=== PATIENT | male | born 1960 | race Caucasian/White ===

== ENCOUNTER 2021-03-16 13:42 | Outpatient (CLI) | payer OTHER, SELFPAY ==
[2021-03-16 14:23] LABS: Alanine Aminotransferase 21 U/L (4-50); Albumin Level 4.5 g/dL (3.5-5.1); Alkaline Phosphatase 86 U/L (38-126); Anion Gap 7 mmol/L (8-16); Aspartate Amino Transferase 26 U/L (17-59); Bilirubin,Total 0.4 mg/dL (0.2-1.3); Blood Urea Nitrogen 36 mg/dL (9-20); Calcium 9.6 mg/dL (8.4-10.2); Carbon Dioxide 26 mmol/L (22-30); Chloride 108 mmol/L (98-107); Cholesterol 215 mg/dL (0-200); Estimated Glomerular Filt Rate 52; Glucose 121 mg/dL (65-110); HDL Direct 43 mg/dL; Potassium 5.3 mmol/L (3.4-5.0); Sodium 141 mmol/L (137-145); Triglycerides 179 mg/dL (<150)
[2021-03-16 14:33] LABS: LDL Cholesterol Direct 120 mg/dL
[2021-03-16 14:52] LABS: Prostate Specific Antigen 1.9 ng/mL (< OR = 4.0)
== END 2021-03-16 13:43 | disposition home or self-care (01) ==
PROVIDERS: PCP Nurse Practitioner; Visit Provider Nurse Practitioner
DX: I10 Essential (primary) hypertension (principal); Z79.899 Other long term (current) drug therapy; E78.5 Hyperlipidemia, unspecified; Z12.5 Encounter for screening for malignant neoplasm of prostate
CPT/HCPCS: 36415; 80053; 80061; 84153

== ENCOUNTER 2022-03-27 11:36 | Outpatient (CLI) | payer OTHER, SELFPAY ==
--- NOTE | 2022-03-27 | ECG_ITS ---
Measurements Intervals [place] Rate: 96 P: 29 WA: 144 QRS: -36 QRSD: 107 T: 30 QT: 382 QTc: 485 Interpretive Statements SINUS RHYTHM MARKED LEFT AXIS DEVIATION [QRS AXIS < -30] COMPARED TO ECG 09/20/2018 10:08:14 NO SIGNIFICANT CHANGES Electronically Signed On 03-27-2022 17:08:34 CDT by Rufino Benitez M.D.
[2022-03-27 12:04] LABS: Hematocrit 41.3 % (42.0-52.0); Hemoglobin 13.5 g/dL (14.0-18.0)
[2022-03-27 12:18] LABS: Albumin Level 4.5 g/dL (3.5-5.1); Anion Gap 14 mmol/L (8-16); Blood Urea Nitrogen 14 mg/dL (9-20); Calcium 9.8 mg/dL (8.4-10.2); Carbon Dioxide 25 mmol/L (22-30); Chloride 102 mmol/L (98-107); Estimated Glomerular Filt Rate > 60; Glucose 128 mg/dL (65-110); Phosphorus 2.3 mg/dL (2.5-4.5); Sodium 141 mmol/L (137-145)
[2022-03-27 12:31] LABS: Urine Cotinine POSITIVE
[2022-03-27 14:01] LABS: Hemoglobin A1C 5.8 % (<5.7)
== END 2022-03-27 11:37 | disposition home or self-care (01) ==
PROVIDERS: PCP Internal Medicine; Visit Provider Orthopaedic Surgery
DX: M16.11 Unilateral primary osteoarthritis, right hip (principal); E78.5 Hyperlipidemia, unspecified; R73.9 Hyperglycemia, unspecified; Z87.891 Personal history of nicotine dependence; I12.9 Hypertensive chronic kidney disease with stage 1 through stage 4 chronic kidney disease, or unspecified chronic kidney disease; N18.30 Chronic kidney disease, stage 3 unspecified
CPT/HCPCS: 80069; 80307; 82565; 83036; 85014; 85018; 93005

== ENCOUNTER 2024-04-07 15:02 | Outpatient (CLI) | payer OTHER, SELFPAY ==
--- NOTE | ~2024-04-07 | XR_ITS ---
XR hand LT min 3V Ordering provider: Urbano Paez MD History: . M79.642 - Pain in left hand . Comparison: None. FINDINGS: BONES: No acute fracture or dislocation. JOINT SPACES: Narrowing of the interphalangeal joint of the thumb. Narrowing of the proximal and dist al interphalangeal joints suggestive of osteoarthritic changes. SOFT TISSUES: Unremarkable. IMPRESSION: No acute osseous abnormality left hand. Reviewed, dictated and finalized at location A.
--- NOTE | ~2024-04-07 | XR_ITS ---
EXAM: XR finger 1st LT min 2V DATE: 04/07/2024 15:27 HISTORY: M79.642 - Pain in left hand . COMPARISON: 04/07/2024. FINDINGS: Normal mineralization. No fracture or dislocation. No lytic or blastic lesion. Moderate de generative narrowing at the thumb interphalangeal and first CMC joints. Mild degenerative narrowing a t the first MCP joint. No erosion or periosteal change. Soft tissues within normal limits. 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 Reviewed, dictated and finalized at location K.
--- NOTE | ~2024-04-07 | XR_ITS ---
EXAM: XR knee LT 3V DATE: 04/07/2024 15:27 HISTORY: M25.569 - Pain in unspecified knee . COMPARISON: 03/04/2015. FINDINGS: Decreased mineralization. No fracture or dislocation. No lytic or blastic lesion. Severe m edial joint space narrowing. Moderate tricompartmental osteophytosis. Large volume joint fluid. No er osion or periosteal change. Minimal vascular calcifications. IMPRESSION: Osteopenia. Tricompartmental left knee osteoarthritis, severe in the medial compartment. Large left knee joint effusion. Reviewed, dictated and finalized at location K. IMPRESSION: Osteopenia. Tricompartmental left knee osteoarthritis, severe in th e medial compartment. Large left knee joint effusion.
== END 2024-04-07 15:03 | disposition home or self-care (01) ==
PROVIDERS: PCP Family Medicine; Visit Provider Family Medicine
DX: M19.042 Primary osteoarthritis, left hand (principal); M17.12 Unilateral primary osteoarthritis, left knee
CPT/HCPCS: 73130; 73140; 73562

== ENCOUNTER 2024-09-17 16:27 | Outpatient (CLI) | payer OTHER, SELFPAY ==
--- NOTE | ~2024-09-17 | US_ITS ---
EXAMINATION: US venous doppler [facility] DATE: 09/17/2024 17:11 INDICATION: Lower limb swelling. Localized lower limb edema. TECHNIQUE: Grayscale ultrasound images without and with compression and Doppler ultrasound images of the bilateral lower extremity veins were obtained. COMPARISON: Ultrasound 11/14/18 FINDINGS: The visualized portions of right common femoral vein, profunda (deep) femoral vein, femoral vein, pop liteal vein, peroneal veins, posterior tibial veins, and greater saphenous vein outflow are patent. The visualized portions of left common femoral vein, profunda femoral vein, femoral vein, popliteal v ein, peroneal veins, posterior tibial veins, and greater saphenous vein outflow are patent. IMPRESSION: 1. No deep venous thrombosis. Reviewed, dictated and finalized at location A. L NURSE CONSULTANT
--- OUTSIDE RECORDS SUMMARY | 2024-09-17 16:30 | XMS_ITS | Clinical Summary ---
Author Organization [facility] Address [address] [place] [address] Phone Care Team Providers Care Teacher Kindergarten Name Role Phone Zana Sandoval DO Primary Care Provider [phone] Allergies No known active allergies Medications Medication Sig Dispensed Refills Start Date End Date Status amLODIPine (NORVASC) 5 MG tablet Take 5 mg by mouth 1 (one) time each day 11/18/2021 Active traMADol (ULTRAM) 50 MG tablet Take 50 mg by mouth 3 (three) times a day if needed for pain 11/18/2021 Active valsartan (DIOVAN) 320 MG tablet TAKE 1 TABLET BY MOUTH ONCE DAILY (STOP TAKING VALSARTAN/HCTZ) 11/18/2021 Active HYDROcodone-acetaminop hen (NORCO) 5-325 MG per tablet Take 1-2 tablets by mouth every 6 (six) hours if needed for pain 03/28/2022 Active Active Problems Problem Noted Date Diagnosed Date Hypertension 01/02/2022 Hyperlipidemia 01/02/2022 Chronic kidney disease 01/02/2022 Immunizations Name Administration Dates Next Due Sars-cov-2, Unspecified 11/07/2020 Family History Medical History Relation Comments Kidney disease Neg Hx Nephrolithiasis Neg Hx Social History Tobacco Use Types Packs/Day Years Used Date Smoking Tobacco: Former Cigarettes 1 30 0 07/30/1980 - 07/30/2010 Smokeless Tobacco: Never Alcohol Use Standard Drinks/Week Comments Yes 3 (1 standard drink = 0.6 oz pur e alcohol) Sex and Gender Information Value Date Recorded Sex Assigned at Not on file Gender Identity Not on file Sexual Orientation Not on file Last Filed Vital Signs Vital Sign Reading Time Taken Comments Blood Pressure 136/78 04/12/2022 2:23 PM CDT Pulse - - Temperature 37.1 C (98.7 F) 04/12/2022 2:23 PM CDT Respiratory Rate 18 04/12/2022 2:23 PM CDT Oxygen Saturation - - Inhaled Oxygen Concentration - - Weight 110 kg (242 lb) 04/12/2022 2:23 PM CDT Height 188 cm (6' 2 ) 04/12/2022 2:23 PM CDT Body Mass Index 31.07 04/12/2022 2:23 PM CDT Plan of Treatment Health Maintenance Due Date Last Done Comments Influenza Vaccine (#1) 2024 Care Teams Teacher Kindergarten Relationship Specialty Start Date End Date Zana Sandoval DO [address] [place] [address] PCP - General Internal Medicine 11/08/21
== END 2024-09-17 16:28 | disposition home or self-care (01) ==
PROVIDERS: PCP Family Medicine; Visit Provider Orthopaedic Surgery
DX: R60.0 Localized edema (principal)
CPT/HCPCS: 93970

== ENCOUNTER 2025-01-23 00:18 | Outpatient (CLI) | payer OTHER, SELFPAY ==
--- NOTE | 2025-01-23 15:11 | ECG_ITS ---
Test Date: 2025-01-23 15:24:52 Measurements Intervals [place] Rate: 97 P: 63 MD: 158 QRS: -11 QRSD: 108 T: 53 QT: 362 QTc: 461 Interpretive Statements SINUS RHYTHM DELAYED PRECORDIAL R/S TRANSITION BORDERLINE ECG No previous ECG available for comparison Electronically Signed On 01-23-2025 15:38:45 CDT by Deandre Swan D.O.
[2025-01-23 15:35] LABS: Basophils Absolute Auto 0.1 K/mm3 (0.0-0.1); Basophils Percent Auto 0.7 % (0.2-1.2); Eosinophils Absolute Auto 0.2 K/mm3 (0-0.3); Eosinophils Percent Auto 3.1 % (0-4.4); Hematocrit 38.6 % (42.0-52.0); Hemoglobin 12.4 g/dL (14.0-18.0); Immature Granulocyte Absolute 0.02 K/mm3 (0.00-0.031); Immature Granulocyte Percent A 0.3 % (0-0.5); Lymphocytes Absolute Auto 1.17 K/mm3 (0.9-3.2); Lymphocytes Percent Auto 16.3 % (18.3-44.2); Mean Corpuscular HGB Conc 32.1 g/dl (32-36); Mean Corpuscular Hemoglobin 30.3 pg (26-34); Mean Corpuscular Volume 94.4 fl (80-100); Mean Platelet Volume 8.8 fl (7.4-10.4); Monocytes Absolute Auto 0.7 K/mm3 (0.1-0.6); Monocytes Percent Auto 9.3 % (2.6-8.5); Neutrophils Absolute Auto 5.1 K/mm3 (1.3-6.7); Neutrophils Percent Auto 70.3 % (45.5-73.1); Platelet Count Result 361 k/mm3 (150-375); Red Blood Count 4.09 M/mm3 (4.6-6.20); Red Cell Distribution Width 13.5 % (11.5-14.5); White Blood Count 7.2 K/mm3 (4.5-10.0)
[2025-01-23 15:49] LABS: Hemoglobin A1C. 5.8 % (<5.7)
[2025-01-23 15:58] LABS: INR 0.9; Prothrombin Time 12.6 Seconds (11.1-14.7)
[2025-01-23 15:59] LABS: Partial Thromboplastin Time 28.6 Seconds (22.3-36.8)
[2025-01-23 16:10] LABS: Urine Cotinine NEGATIVE
[2025-01-23 16:22] LABS: Albumin Level 4.5 g/dL (3.5-5.1); Anion Gap 8 mmol/L (4-12); Blood Urea Nitrogen 27 mg/dL (9-20); Calcium 9.7 mg/dL (8.4-10.2); Carbon Dioxide 28 mmol/L (22-30); Chloride 104 mmol/L (98-107); Estimated Glomerular Filt Rate 58; Glucose 119 mg/dL (65-110); Potassium 4.7 mmol/L (3.4-5.0); Sodium 140 mmol/L (137-145)
== END 2025-01-23 00:19 | disposition home or self-care (01) ==
PROVIDERS: Anesthesiology; PCP Family Medicine; Visit Provider Orthopaedic Surgery
DX: M16.11 Unilateral primary osteoarthritis, right hip (principal); N18.31 Chronic kidney disease, stage 3a; Z01.818 Encounter for other preprocedural examination
CPT/HCPCS: 36415; 80048; 80307; 82040; 83036; 85025; 85610; 85730; 87081; 93005

== ENCOUNTER 2025-02-16 01:17 | Day surgery (SDC) | payer OTHER, SELFPAY ==
[2025-01-23 10:48] VITALS: BP 211/107; PULSE 101; RESP 16; TEMP 37.1; O2SAT 98
[2025-01-23 14:25] VITALS: BP 201/105; PULSE 107; RESP 16; O2SAT 99; BMI 28.0
--- NOTE | 2025-01-23 15:02 | PC.NURSE ---
Addendum entered by Katherine Mcgovern RN 01/23/25 15:08: KEIRA PREP/SCRUB as instructed DENIZ Original Note: *Pt reports no symptoms of his HTN today and Tachycardia, will proceed with his testing and have recommended pt to go to ER for further evaluation as his BP and HR are both elevated. Pt understands the risks. Report to the Outpatient Waiting Room, entrance under the green pavilion located off [address], at time _06:00am on date ___02/16/25____. Planned Procedure Time: 07:30am .? Time changes happen often and if your time is changed the preop area will call you the afternoon before. - You and your visitor will be asked to self-screen and do not enter if you have any COVID symptoms. Please call surgeon if you need to reschedule. - A mask is optional within the hospital at this time. Patients may have clear liquids (water, carbonated beverages, clear teas, apple juice) until 3 hours prior to surgery with a maximum of 20 ounces. - No food from midnight until time of surgery and no smoking, or chewing tobacco (or any form of nicotine). No chewing gum, candy or mints. (0430am) Take only the following medications with a SIP of water on the morning of surgery: _None DO NOT STOP ANY OF YOUR OTHER PRESCRIPTION MEDICATIONS PRIOR TO SURGERY EXCEPT THE FOLLOWING Hold all vitamins and supplements for 3 days per anesthesiologist. Date to take last dose 02/12/25 Medications to discontinue per physician __NSAIDS, Motrin, Advil, Aleve for [address] Lo Date to take last dose 02/07/25 Please no make-up, nail kuwaiti, hairspray, perfume, deodorant, or body powder the day of surgery.? No jewelry (including any body piercings) or valuables the day of surgery, leave them at home.? Please take a shower or bath the night before, or the morning of, surgery with an antibacterial soap.? Wear comfortable, loose fitting clothing.? - Jewelry must be removed prior to entering the operating room.? Rings and piercings that are not removed may be cut off. - The hospital will not accept responsibility for valuables.? - Please leave all valuables, including medications, at home the day of surgery. If you are going home after surgery, a licensed sprinkling truck driver must drive you home.? - NO public transportation without another adult if you receive anesthesia. - We recommend that an adult stay with you for 24 hours following discharge. - We also recommend that you do not drive, make important decision, drink alcoholic beverages, or take any drugs that were not prescribed by your health care provider for at least 24 hours after your discharge time. Follow any additional instructions given to you from your surgeon. Telephone instructions given to __Patient and asked if any additional questions and then verbalized understanding. Patient advised to call surgeon office or pre surgery nurse liaison [phone] if any additional questions.
--- NOTE | 2025-02-11 11:57 | PM.IMHP ---
H&P: HPI History of Present Illness Date/Time: 02/11/25 11:57 Chief Complaint: DJD right hip Narrative: 64-year-old male presents today for a right anterior total hip arthroplasty. Patient has moderately severe osteoarthritis in the right hip. He is having continued symptoms on a regular basis. Patient has chronic kidney disease and not able to take anti-inflammatories. At this point his symptoms are significant on a daily basis. He has been using a cane regularly. Due to the pain and limitations of his activities patient would like to proceed with total hip arthroplasty at this point. Review of Systems Review of Systems: All systems reviewed & are unremarkable except as noted in HPI and below PMFSH Past Medical History Medical History Osteoarthritis Former smoker Stage III chronic kidney disease Benign essential hypertension Other and unspecified hyperlipidemia Surgical History Surgical History Presence of right artificial knee joint Social History Social History Smoking packs per day: 1 Smoking cigarettes per day: 20.0 Years smoked: 30 Smoking pack-years: 30.00 Smoking status: Former smoker Tobacco type: cigarettes and e-cigarettes/vaping Second hand tobacco smoke exposure: No Smoking end date: 07/30/13 Additional smoking assessment comments: quit vaping nicotine few weeks ago Alcohol intake: current Drinks per week: 1 Alcohol use details: social Substance use: current Do You Feel Safe in your Home?: Yes Lack of Transportation: No Lack of Food: Never True Current Housing: I Have Housing Concerned About Future Housing: No Difficulty Paying Gas/Electric Bills: No Difficulty Paying for Meds: No Currently Unemployed: No Education: Associate Degree Difficulty w/ Childcare or Family Care: No Living arrangements: with family Additional living arrangements comments: Gender identity (if verbalized by the patient): Male Sexual Orientation (if Verbalized by the Patient): Straight or Heterosexual Spiritual care concerns: No Meds Home Medications and Allergies Home Medications ?Medication ?Instructions ?Recorded ?Confirmed ?Type valsartan 320 mg tablet 320 mg PO DAILY #90 tabs 12/26/24 02/11/25 Rx chlorthalidone 25 mg tablet 25 mg PO DAILY 01/23/25 02/11/25 History multivit,Ca,min-iron 8 mg-folic 1 tablet PO DAILY 01/23/25 02/11/25 History acid 200 mcg-lycopene 600 mcg tablet (Men's Daily Multivitamin) tramadol 50 mg tablet 50 mg PO Q8H PRN pain #40 tabs 01/28/25 02/11/25 Rx Allergies Allergy/AdvReac Type Severity Reaction Status Date / Time amlodipine AdvReac Intermediate swellilng Verified 02/11/25 11:15 Exam Narrative: 64-year-old male he is 5 ft 11 and 204 lb BMI is 28.4. Skin around the hip and groin crease are normal. 2+ dorsalis pedis and posterior tibial artery pulse palpable. His right hip flexes to 120 which causes him lateral hip pain, internal rotation to 15 causes lateral hip pain external rotation of 30 which causes him lateral hip pain. Stinchfield maneuver reproduces the same lateral hip pain. There is no tenderness over the greater trochanter. No edema in either lower extremity. He has normal sensation both lower extremities. Resp: Auscultation: clear to auscultation bilaterally Cardio: Rate: regular rate Rhythm: regular rhythm Assessment and Plan Assessment and plan (1) Primary localized osteoarthritis of right hip: Code(s): M16.11 - Unilateral primary osteoarthritis, right hip Status: Acute Assessment and Plan: 64-year-old male who has moderately severe osteoarthritis the right hip. He has continued daily symptoms that her rather severe. At this point he feels he would rather proceed with total hip arthroplasty rather than continue nonsurgical treatment. Surgical procedures well as the risks and complications were discussed in detail all questions were answered we will proceed. Patient has seen cardiology and has been cleared without any additional testing. He has seen his orthotic technician at is felt to be stable and has been cleared as well. Patient will see his primary care doctor for pre-surgical clearance as well. Nasal swab was negative. Hemoglobin 12.4 platelets 361. Panel shows his creatinine at 1.26 hours 58.
--- OUTSIDE RECORDS SUMMARY | 2025-02-16 01:20 | XMS_ITS | Continuity of Care Document ---
Author Organization [facility] Address [address] [place] [address] Phone Care Team Providers Care Seafood Fisherman Name Role Phone Tonjanoni BAY Telly Unavailable Unavailable Allergies, Adverse Reactions, Alerts Substance Reaction Status Criticality codeine (unknown) Active No Information Medications Medication Instructions Dosage Effective Dates (start - stop) Status Comments celecoxib 200 mg capsule take 1 capsule by oral route 2 times every day as needed 200 MG - Active Axiron 30 mg/actuation (1.5 mL) transderm solution in metered pump apply 3 pump by topical route every day in the morning to each underarm for a total dose of 60 mg 90 MG - Active Nexium 40 mg capsule,delayed release take 1 capsule by oral route every day 40 MG - Active CELECOXIB (unknown strength) Not Available - No Longer Active AXIRON (unknown strength) Not Available - No Longer Active NEXIUM (unknown strength) Not Available - No Longer Active Procedures Procedure Date EYE EXAM ESTABLISHED PATIENT, MEDICAL De REFRACTION OPTIONAL UPDATE EYE EXAM ESTABLISHED PATIENT, MEDICAL Oc t REFRACTION OPTIONAL UPDATE [facility] frames purchases Trifocal Lens Trivex Standard Photochromatic Tint Lens 1.53-1.59 Progressive lens per lens Trifocal Lens Photochromatic Tint GLASSES RECHECK [facility] frames purchases Trifocal Lens Lens 1.53-1.59 Progressive lens per lens Photochromatic Tint EYE EXAM, EXISTING PATIENT VISION REFRACTION NO CHARGE EYE EXAM, NEW PATIENT MEDICAL REFRACTION UPDATE Advance Directives Directive Yes / No Effective Date File Name No Information Encounters Encounter Description Practice Location Reason(s) For Visit Diagnoses Date Provider Providers Copied on Encounter [facility], [address] [place] [address], [id number] , [place] tel:[phone] [facility] decreased vision (chief complaint) Unspecified blepharitis left lower eyelidUnspecified blepharitis right lower eyelidPresbyopiaAge -related nuclear cataract, bilateral Jun- 7 Magaly Varner. [address] [place] [address], [id number], [place]. tel:[phone] [facility], [address] [place] [address], [id number] , [place] tel:[phone] [facility] no problems with vision and no complaints (chief complaint) Blepharitis of lt lower eyelidBlepharitis of right lower eyelid Apr- 6 Rikypearl Schuler. [address] [place] [address], [id number], [place]. tel:[phone] [facility], [address] [place] [address], [id number] , [place] tel:[phone] [facility] No Information 6 Santi Schuler. [address] [place] [address], [id number], [place]. tel:[phone] [facility], [address] [place] [address], [id number] , [place] tel:[phone] [facility] No Information 5 Santi Schuler. [address] [place] [address], [id number], [place]. tel:[phone] [facility], [address] [place] [address], [id number] , tel:[phone] [facility] No Information Santi Schuler. [address] [place] [address], [id number], [place]. tel:[phone] [facility], [address] [place] [address], [id number] , tel:[phone] [facility] No Information Santi Schuler. [address] [place] [address], [id number], [place]. tel:[phone] [facility], [address] [place] [address], [id number] , tel:[phone] [facility] Blepharitis, unspecifiedTear film insufficiency, unspecified Santi Schuler. [address] [place] [address], [id number], [place]. tel:[phone] [facility], [address] [place] [address], [id number] , tel:[phone] [facility] blurry vision (chief complaint) Blepharitis, unspecifiedExophori aTear film insufficiency, unspecified Santi Schuler. [address] [place] [address], [id number], [place]. tel:[phone] Family History Family Member Type Diagnosis Age At Onset Problem (finding) No family history of Ca taracts Mother Problem (finding) Alive and well Problem (finding) Family history of Retin al disease Problem (finding) No family history of Gl aucoma Problem (finding) No family hist ory of Macular degeneration Payers Payer name Insurance type Covered green party ID Authoriza tion(s) [facility] [id number] Social History Type Description Quantity Date Captured Comments Alcohol Use Details Unknown Caffeine Use Details Unknown Tobacco Use Status Never smoked tobacco 2016 Smoking Status Never smoker Non-Smoking Tobacco Use Details : No Details Available : No Details Available Sex Male Chief Complaint And Reason For Visit From encounter dated '07/03/2017 08:45'. decreased vision (chief complaint). Description: The 57 Year old male presents for yearly dilated exam. Pt reports decreased vision in the right and left eye. The onset was gradual with distance vision and NVA is good with readers vs his safety glasses. The patient denies pain or discomfort currently however he battles blepharitis at times. Pt uses baby shampoo washes PRN. Reason For Referral Reason For Referral No Information History Of Present Illness Encounter Date Complaint History Of Prese nt Illness decreased vision The 57 Year old male presents for yearly dilated exam. Pt reports decreased vision in the right and left eye. The onset was gradual with distance vision and NVA is good with readers vs his safety glasses. The patient denies pain or discomfort currently however he battles blepharitis at times. Pt uses baby shampoo washes PRN. no problems with vis ion and no complaints The 56 Year old male presents for evaluation of no problems with vision and no complaints in the right eye and left eye. Vision good, stable and constant D & N c gls.. Hx of Blepharitis OU. The patient denies pain or discomfort. Using baby shampoo for eye wash. No eye meds. blurry vision The 54 Year old male presents for evaluation of blurry vision in the right eye and left eye. It affects distance vision. It occurs occasionally. Pt has glare at night when VA is blurry. OU feel comfortable. Pt currently being treated for blephartitis and has been using DCN over 2 years. Pt using Azasite OU qday and Refresh OU 2-4x day. Functional Status Date Functional Assessmen t No Information Instructions Date Instruction Additional Infor kj Impression/Plan - 1. Trace bilateral blepharitis. Lids look clean and clear. Dryness can also cause blurry vision. Continue lid scrubs 3x week and use artificial tears OU 3-4x day. 2. Spec RX available. Optional update. 3. OU look healthy. No ARMD or OAG. 4. Early cataracts OU. Will monitor. Follow up - Return i n 1 year with RMQ for Refract T & D. Impression/Plan - He althy eyes OU, no ARMD, no OAG.Trace blepharitis OU - continue lid scrubs.Glasses - optional update.Return for yearly exams. Follow up - Return i n 1 year with ADS for , Refract T & D. Impression/Plan - 1. Dryness has improved. Continue to use artificial tears OU. D/C Azasite and DCN. 2. MRX is stable from last exam. Recommend progressive lenses. Follow up - Return i n 1 year with ADS for Refract T & D. Impression/Plan - He althy exam. No signs of OAG, ARMD or Cataracts.Blepharitis OU - continue Azasite OU q day. Discontinue DCN for now. Dryness OU - use AT's OU 4 X's daily. Consider plugs. Updated MRx on file. New specs will improve vision to 20/20. Patient complains of visual fluctuation. Sometimes lasting 10 days. Could be a result of dryness, blepharitis or the need for new specs.. Use AT's consistently. Back one month to recheck MRX. If stable, will update specs then. Follow up - Return in one year w ith ADS for RTD. Assessments Type Assessment Date assessment Unspecified blepharitis left low er eyelid assessment Unspecified blepharitis right lo wer eyelid assessment Presbyopia assessment Age-related nuclear cataract, bi lateral Patient Care Teams Name Effective Dates (start - stop) Status Members No Information
--- OUTSIDE RECORDS SUMMARY | 2025-02-16 01:20 | XMS_ITS | Clinical Summary ---
Author Organization [facility] Address [address] [place] [address] Phone Care Team Providers Care Account Development Associate Name Role Phone Zana Sandoval DO Primary Care Provider [phone] Allergies No known active allergies Medications amLODIPine (NORVASC) 5 MG tablet Take 5 mg by mouth 1 (one) time each day 11/18/2021 Active traMADol (ULTRAM) 50 MG tablet Take 50 mg by mouth 3 (three) times a day if needed for pain 11/18/2021 Active valsartan (DIOVAN) 320 MG tablet TAKE 1 TABLET BY MOUTH ONCE DAILY (STOP TAKING VALSARTAN/HC TZ) 11/18/2021 Active HYDROcodone-roxy taminophen (NORCO) 5-325 MG per tablet Take 1-2 tablets by mouth every 6 (six) hours if needed for pain 03/28/2022 Active Active Problems Problem Noted Date Diagnosed Date Hypertension 01/02/2022 Hyperlipidemia 01/02/2022 Chronic kidney disease 01/02/2022 Immunizations Immunization Administration Dates Next Due Sars-cov-2, Unspecified 11/07/2020 [...] Recorded Sex Assigned at Not on file Legal Sex Male 10:44 AM MDT Gender Identity Not on file Sexual Orientation [...] 2:23 PM CDT Height 188 cm (6' 2) 04/12/2022 2:23 PM CDT Body Mass Index 31.07 04/12/2022 2:23 PM CDT Plan of Treatment Health Maintenance Due Date Last Done Comments Influenza Vaccine (#1) 2025 Insurance [facility] Care Teams Account Development Associate Relationship Specialty Start Date End Date Zana Sandoval DO [address] [place] [id number] PCP - General Internal Medicine 11/08/21
--- OUTSIDE RECORDS SUMMARY | 2025-02-16 01:20 | XMS_ITS | Clinical Summary ---
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 Gender Identity Not on file Sexual Orientation Not on file Plan of Treatment Health Maintenance Due Date Last Done Comments Hepatitis C Virus (HCV) Screening 1961 TdaP Immunization 1961 Colonoscopy 2006 Colorectal Cancer Screening 2006 Cologuard 2011 Immunochemical Fecal Occult Blood 2011 Pneumococcal Immunization (5 0+ years) (1 of 1 - PCV) 2011 Zoster Immunization (1 of 2) 2011 PSA Discussion 2016 Influenza Immunization (#1) 2024 SARS-COV-2 Immunization ( - 2023-25 season) 2024 Respiratory Syncytial Virus (RSV) Immunization (Adult) (1 - 1-dose 75+ series) 2036 Hepatitis B Immunization Aged Out No longer eligible based on patient's age to complete this topic Meningococcal Immunization (ACWY) Aged Out No longer eligible based on patient's age to complete this topic Pneumococcal Immunization Combined Aged Out No longer eligible based on patient's age to complete this topic Rotavirus Immunization Aged Out No lo nger eligible based on patient's age to complete this topic
[2025-02-16 06:24] VITALS: BP 137/93; PULSE 104; TEMP 36.7; O2SAT 97
[2025-02-16 06:52] LABS: Cannabinoid Screen Urine Positive (Negative)
--- NOTE | 2025-02-16 07:00 | SUR.PREOP ---
0658-Urine drug screen result rcvd-positive result, Dr. Bragg notified per Maria Esther Daniels RN-surgery is cancelled and Dr. Bragg states he will be in to notify pt.
--- NOTE | 2025-02-16 07:24 | SUR.PREOP ---
0720-Dr. Bragg in to speak with pt.
--- NOTE | 2025-02-16 08:35 | P.HPUP_ITS ---
History and Physical Update Update Date/Time: 02/16/25 08:35 Patient has urinary test this morning was positive for opiates, amphetamines, and cannabinoids. Patient admits that he has been taking speed this week. He admits he has been using his friend's Percocets. We do not require patients to stop cannabis consumption. With patient's history of severe hypertension which was 206/110 I believe on January 24, and this is despite the registered nurse practitioner adjusting his antihypertension medications, the risk of proceeding with elective total hip replacement is too high to proceed and therefore his surgery has been canceled. I asked the patient about Xylazine use known as tranq and patient adamantly denies ever using this or fentanyl. I wondered whether use of Xylazine might have explained his mysterious cutaneous source that he gets all over his body which I have previously concluded our likely take hers lesions. I have discussed all of these issues with the patient in private in detail. Patient states his does not know about his drug use habits and he does not intend tell her as this will cause severe marrow this course. Fortunately we had the patient's step out of the room when I had my discussion of the results of the urine test with him. Patient was discovered to have been using amphetamines back in July by his primary care physician Dr. Paez which had learned about last night on the bullet in [place]. 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 I have recommended that patient call his primary care physician today to discuss strategies on addressing his substance abuse problem which may include counseling. I explained him that we will not reschedule his hip replacement until we are convinced that his drug abuse problem has been successfully addressed. 30 minutes were spent total care this patient more than half this time spent in [id number] care today.
--- NOTE | 2025-02-16 08:45 | PM.PNORT ---
Progress Note: A&P Assessment and Plan (1) Primary localized osteoarthritis of right hip: Code(s): M16.11 - Unilateral primary osteoarthritis, right hip Status: Acute Assessment and Plan: Patient has urinary test this morning was positive for opiates, amphetamines, and cannabinoids. Patient admits that he has been taking speed this week. He admits he has been using his friend's Percocets. We do not require patients to stop cannabis consumption. With patient's history of severe hypertension which was 206/110 I believe on January 24, and this is despite the electric meter inspector adjusting his antihypertension medications, the risk of proceeding with elective total hip replacement is too high to proceed and therefore his surgery has been canceled. I asked the patient about Xylazine use known as tranq and patient adamantly denies ever using this or fentanyl. I wondered whether use of Xylazine might have explained his mysterious cutaneous source that he gets all over his body which I have previously concluded our likely pickers lesions. In the right leg, 1 of these lesions caused cellulitis in the right foot ankle and he was on antibiotics for extended period of time eventually had consultation with leather colorer who did a biopsy which suggested venous stasis dermatitis. That would not explain lesions that he gets on his arms I have discussed all of these issues with the patient in private in detail. Patient states his does not know about his drug use habits and he does not intend tell her as this will cause severe marrow this course. Fortunately we had the patient's step out of the room when I had my discussion of the results of the urine test with him. Patient was discovered to have been using amphetamines back in July by his primary care physician Dr. Paez which had learned about last night on the bullet in [facility]. I have entered amphetamine abuse in his diagnosis list. I have recommended that patient call his primary care physician today to discuss strategies on addressing his substance abuse problem which may include counseling. I explained him that we will not reschedule his hip replacement until we are convinced that his drug abuse problem has been successfully addressed. I also discussed with him that use of amphetamines and use of someone else's Percocet pills is the legal and he could go to senior care if the police discovered that he had these drugs on his person which is another reason for him to completely and permanently stop use of someone else's narcotics and illegal drugs 40 minutes were spent total care this patient more than half this time spent in [id number] care today. (2) Amphetamine abuse: Code(s): F15.10 - Other stimulant abuse, uncomplicated Status: Acute Subjective Subjective Date/Time Seen: 02/16/25 08:45 Objective Data Vital Signs Vital Signs: Vital Signs - 24 hr 02/16/25 06:24 Temperature 36.7 C Pulse Rate 104 H Blood Pressure 137/93 H Pulse Oximetry 97 Oxygen Delivery Room Air Meds/Results Medications: Active Medications Generic Name Dose Route Start Last Admin Trade Name Freq PRN Reason Stop Dose Admin Fentanyl Citrate 25 mcg 02/13/25 12:29 Fentanyl Citrate Inj (*Crx) 100 Mcg/2 Ml Vial IV PUSH Q2M PRN Pain Lactated Ringer's 1,000 mls @ 30 mls/hr 02/13/25 12:30 Lr - Lactated Ringers Iv IV CONT .Q24H REGINA Lactated Ringer's 1,000 mls @ 30 mls/hr 02/13/25 12:30 Lr - Lactated Ringers Iv IV CONT .Q24H REGINA Ondansetron HCl 4 mg 02/13/25 12:29 Ondansetron Inj 4 Mg/2 Ml Vial IV PUSH ONCE PRN Nausea Labs Labs: Laboratory Results - last 24 hr 02/16/25 06:19 Urine Opiates Screen Positive A Urine Methadone Screen Negative Ur Barbiturates Screen Negative Ur Phencyclidine Scrn Negative Ur Amphetamine Screen Positive A U Benzodiazepines Scrn Negative Urine Cocaine Screen Negative U Cannabinoids Screen Positive A
== END 2025-02-16 07:55 | disposition home or self-care (01) ==
PROVIDERS: PCP Family Medicine; Visit Provider Orthopaedic Surgery
PROC: (CPT 27130; principal; 2025-02-16 07:30)
DX: M16.11 Unilateral primary osteoarthritis, right hip (principal); F15.10 Other stimulant abuse, uncomplicated; Z53.09 Procedure and treatment not carried out because of other contraindication
CPT/HCPCS: 80307; 99212; G0463; J0166; J1836; J1885; J2270; J2795

== ENCOUNTER 2025-04-17 12:18 | Outpatient (CLI) | payer OTHER, SELFPAY ==
--- NOTE | ~2025-04-17 | XR_ITS ---
EXAMINATION: XR hip LT min 2V, 04/17/2025 12:30 CDT HISTORY: Pain in unspecified hip COMPARISON: No comparisons available. Findings: No acute fracture or malalignment. No significant degenerative changes. Soft tissues unremarkable. Impression: No acute fracture or malalignment. Reviewed, dictated and finalized at location A. Impression: No acute fracture or malalignment.
--- NOTE | ~2025-04-17 | XR_ITS ---
XR knee LT min 4V 04/17/2025 13:23 Indication: Left knee pain Procedure: 3 views left knee Comparison: 04/07/2024 Findings: There is severe tricompartment osteoarthritis of the left knee. No acute fracture or traumatic malalignment. Small joint effusion. No foreign bodies. Impression: 1: Severe tricompartment osteoarthritis. 2: Small joint effusion. Reviewed, dictated and finalized at location O. Impression: 1: Severe tricompartment osteoarthritis. 2: Small joint effusion.
--- NOTE | ~2025-04-17 | XR_ITS ---
XR thoracic spine 3V 04/17/2025 13:23 Indication: Hip pain. Procedure: 3 views thoracic spine Comparison: No prior studies for comparison. Findings: Mild levocurvature of the thoracic spine. Osteopenia. There is mild multilevel lower thoracic spondylosis. No acute fracture, subluxation or dislocation. No paraspinal soft tissue abnormality. Pedicles intact. Impression: 1: Mild thoracic spondylosis. Reviewed, dictated and finalized at location O. Impression: 1: Mild thoracic spondylosis.
--- NOTE | ~2025-04-17 | XR_ITS ---
XR hip RT min 2V 04/17/2025 13:23 Indication: Right hip pain Procedure: 2 views right hip Comparison: 01/28/2025 Findings: Severe osteoarthritis of the right hip. No fracture, subluxation or dislocation. No significant soft tissue abnormality. No foreign bodies. Impression: 1: Severe osteoarthritis of the right hip. Reviewed, dictated and finalized at location O. Impression: 1: Severe osteoarthritis of the right hip.
--- NOTE | ~2025-04-17 | XR_ITS ---
XR lumbar spine 2-3V 04/17/2025 13:23 Indication: Hip pain Procedure: 3 views lumbar spine Comparison: No prior studies for comparison. Findings: Vertebral body heights are maintained. There is disc narrowing at L4-5 and L5-S1. There is grade 1 degenerative spondylolisthesis at L4-5. There is moderate mid and lower lumbar facet hypertrophy. No acute fracture or traumatic malalignment. Impression: 1: Moderate-severe lumbar spondylosis. Reviewed, dictated and finalized at location O. Impression: 1: Moderate-severe lumbar spondylosis.
== END 2025-04-17 12:19 | disposition home or self-care (01) ==
LOC: MICIMG 12:20
PROVIDERS: PCP Family Medicine; Visit Provider Pain Medicine Interventional Pain Medicine
DX: M25.552 Pain in left hip (principal); M47.24 Other spondylosis with radiculopathy, thoracic region; M47.26 Other spondylosis with radiculopathy, lumbar region; M17.12 Unilateral primary osteoarthritis, left knee; M25.462 Effusion, left knee; M16.11 Unilateral primary osteoarthritis, right hip
CPT/HCPCS: 72072; 72100; 73502; 73564